=== PATIENT | female | born 1940 | race Caucasian/White ===

== ENCOUNTER 2016-11-03 13:12 | Outpatient (CLI) | payer OTHER | END 2016-11-03 13:13 | disposition home or self-care (01) | DX: G47.10 Hypersomnia, unspecified (principal); G47.8 Other sleep disorders; R06.83 Snoring ==

== ENCOUNTER 2016-12-11 08:42 | Outpatient (CLI) | payer MEDICARE | END 2016-12-11 08:43 | disposition home or self-care (01) | DX: E11.9 Type 2 diabetes mellitus without complications (principal) ==

== ENCOUNTER 2017-01-16 15:08 | Outpatient (CLI) | payer MEDICARE | END 2017-01-16 15:09 | disposition home or self-care (01) | DX: D64.9 Anemia, unspecified (principal) ==

== ENCOUNTER 2017-01-28 23:31 | Outpatient (CLI) | payer MEDICARE | END 2017-01-28 23:32 | disposition home or self-care (01) | DX: G47.33 Obstructive sleep apnea (adult) (pediatric) (principal); R09.02 Hypoxemia; I48.91 Unspecified atrial fibrillation; Z68.41 Body mass index [BMI] 40.0-44.9, adult ==

== ENCOUNTER 2017-02-03 08:29 | Outpatient (CLI) | payer MEDICARE ==
[2017-02-03] MEDS ORDERED: BARIUM SULFATE 135 ML BOTTLE PO ONE (09:17)
[2017-02-03] MEDS ORDERED: BARIUM SULFATE 176 GM BOTTLE PO ONE (09:17)
== END 2017-02-03 08:30 | disposition home or self-care (01) ==
DX: K21.9 Gastro-esophageal reflux disease without esophagitis (principal); K22.0 Achalasia of cardia
CPT/HCPCS: 74246; A9270

== ENCOUNTER 2017-02-16 09:43 | Outpatient (CLI) | payer MEDICARE, OTHER | END 2017-02-16 09:44 | disposition home or self-care (01) | DX: G47.33 Obstructive sleep apnea (adult) (pediatric) (principal); R09.02 Hypoxemia; I48.91 Unspecified atrial fibrillation | CPT/HCPCS: 99214; G0463 ==

== ENCOUNTER 2017-02-24 10:47 | Outpatient (CLI) | payer MEDICARE | END 2017-02-24 10:48 | disposition home or self-care (01) | DX: R09.02 Hypoxemia (principal); I48.2 Chronic atrial fibrillation; G47.33 Obstructive sleep apnea (adult) (pediatric); R09.89 Other specified symptoms and signs involving the circulatory and respiratory systems; J90 Pleural effusion, not elsewhere classified; J98.11 Atelectasis ==

== ENCOUNTER 2017-02-24 18:54 | Outpatient (CLI) | payer MEDICARE | END 2017-02-24 18:55 | disposition critical access hospital (66) | LOC: EMS 18:54 | PROVIDERS: ATTEND Surgery | DX: R06.02 Shortness of breath (principal) | CPT/HCPCS: A0425; A0427 ==

== ENCOUNTER 2017-02-24 19:27 | Inpatient (IN) | payer MEDICARE ==
[2017-02-24] MEDS ORDERED: NITROGLYCERIN 2% PASTE TOP STA (19:45)
[2017-02-24] MEDS ORDERED: FUROSEMIDE 40 MG/4 ML VIAL IVP STA (19:46)
[2017-02-24] MEDS ORDERED: FUROSEMIDE 40 MG/4 ML VIAL ONE (19:50)
[2017-02-24] MEDS ORDERED: NITROGLYCERIN 2% PASTE TOP ONE (19:51)
[2017-02-24] MEDS ORDERED: ACETAMINOPHEN 325 MG TABLET PO PRN (20:39)
[2017-02-24] MEDS ORDERED: SODIUM CHLORIDE FLUSH 0.9% 10 ML SYRINGE IVP PRN (20:39)
[2017-02-24] MEDS ORDERED: MORPHINE 2 MG/ML SYRINGE IVP PRN (20:39)
[2017-02-24] MEDS ORDERED: oxyCODONE 5 MG TABLET PO PRN (20:39)
[2017-02-24] MEDS ORDERED: PROCHLORPERAZINE 10 MG/2 ML VIAL IVP PRN (20:39)
[2017-02-24] MEDS ORDERED: ONDANSETRON 4 MG/2 ML VIAL IVP PRN (20:39)
[2017-02-24] MEDS ORDERED: FUROSEMIDE 40 MG/4 ML VIAL IVP SCH (21:00)
[2017-02-24] MEDS: ATENOLOL 25 MG TABLET PO SCH (22:37)
[2017-02-24] MEDS: DABIGATRAN 75 MG CAPSULE PO SCH (22:38)
[2017-02-24] MEDS: SODIUM CHLORIDE FLUSH 0.9% 10 ML SYRINGE IVP SCH (22:41)
[2017-02-25] MEDS: SODIUM CHLORIDE FLUSH 0.9% 10 ML SYRINGE IVP SCH ×3 (06:39→21:27)
[2017-02-25] MEDS: LEVOTHYROXINE 75 MCG TABLET PO SCH (06:39)
[2017-02-25] MEDS: PANTOPRAZOLE 40 MG TABLET PO SCH (06:39)
[2017-02-25] MEDS: INSULIN ASPART 300 UNIT/3 ML PEN SUBQ SCH ×4 (08:16→21:19)
[2017-02-25] MEDS: DABIGATRAN 75 MG CAPSULE PO SCH ×2 (08:27→21:26)
[2017-02-25] MEDS: ATENOLOL 25 MG TABLET PO SCH (08:29)
[2017-02-25] MEDS: POTASSIUM CHLORIDE 20 MEQ TABLET PO SCH (08:30)
[2017-02-25] MEDS: FUROSEMIDE 40 MG/4 ML VIAL IVP SCH ×2 (08:30→21:18)
[2017-02-25] MEDS ORDERED: LISINOPRIL 5 MG TABLET PO SCH (09:00)
[2017-02-25] MEDS ORDERED: NIFEdipine ER 30 MG TABLET PO SCH (09:00)
[2017-02-25] MEDS: POLYETHYLENE GLYCOL 3350 17 GM PACKET PO SCH (11:37)
[2017-02-25] MEDS ORDERED: BUFFERED LIDOCAINE 10 ML SYRINGE IU ONE (16:42)
[2017-02-26] MEDS: PANTOPRAZOLE 40 MG TABLET PO SCH (06:07)
[2017-02-26] MEDS: SODIUM CHLORIDE FLUSH 0.9% 10 ML SYRINGE IVP SCH ×2 (06:07→14:24)
[2017-02-26] MEDS: LEVOTHYROXINE 75 MCG TABLET PO SCH (06:07)
[2017-02-26] MEDS: INSULIN ASPART 300 UNIT/3 ML PEN SUBQ SCH ×3 (07:28→21:39)
[2017-02-26] MEDS: FUROSEMIDE 40 MG/4 ML VIAL IVP SCH ×2 (09:05→14:24)
[2017-02-26] MEDS: POTASSIUM CHLORIDE 20 MEQ TABLET PO SCH (09:07)
[2017-02-26] MEDS: POLYETHYLENE GLYCOL 3350 17 GM PACKET PO SCH (09:09)
[2017-02-26] MEDS: DABIGATRAN 75 MG CAPSULE PO SCH ×2 (09:10→21:58)
[2017-02-27] MEDS: SODIUM CHLORIDE FLUSH 0.9% 10 ML SYRINGE IVP SCH ×2 (06:10→06:11)
[2017-02-27] MEDS: LEVOTHYROXINE 75 MCG TABLET PO SCH (06:11)
[2017-02-27] MEDS: PANTOPRAZOLE 40 MG TABLET PO SCH (06:11)
[2017-02-27] MEDS: POTASSIUM CHLORIDE 20 MEQ TABLET PO SCH (08:37)
[2017-02-27] MEDS: INSULIN ASPART 300 UNIT/3 ML PEN SUBQ SCH ×4 (08:37→22:22)
[2017-02-27] MEDS: DABIGATRAN 75 MG CAPSULE PO SCH ×2 (08:37→22:23)
[2017-02-27] MEDS: POLYETHYLENE GLYCOL 3350 17 GM PACKET PO SCH (08:38)
[2017-02-27] MEDS: TORSEMIDE 20 MG TABLET PO SCH ×2 (09:28→13:43)
[2017-02-27] MEDS ORDERED: diphenhydrAMINE 25 MG CAPSULE PO PRN (16:25)
[2017-02-28] MEDS: TORSEMIDE 20 MG TABLET PO SCH ×2 (06:19→13:56)
[2017-02-28] MEDS: LEVOTHYROXINE 75 MCG TABLET PO SCH (06:20)
[2017-02-28] MEDS: PANTOPRAZOLE 40 MG TABLET PO SCH (06:20)
[2017-02-28] MEDS: INSULIN ASPART 300 UNIT/3 ML PEN SUBQ SCH ×2 (08:36→11:20)
[2017-02-28] MEDS: POLYETHYLENE GLYCOL 3350 17 GM PACKET PO SCH (08:43)
[2017-02-28] MEDS: DABIGATRAN 75 MG CAPSULE PO SCH (08:43)
[2017-02-28] MEDS: POTASSIUM CHLORIDE 20 MEQ TABLET PO SCH (08:44)
== END 2017-02-28 15:10 | disposition home or self-care (01) | DRG 299 ==
PROC: 0W9B3ZZ Drainage of Left Pleural Cavity, Percutaneous Approach (ICD-10-PCS; principal; 2017-02-25)
DX: I11.0 Hypertensive heart disease with heart failure (principal); I50.43 Acute on chronic combined systolic (congestive) and diastolic (congestive) heart failure; I48.91 Unspecified atrial fibrillation; E11.51 Type 2 diabetes mellitus with diabetic peripheral angiopathy without gangrene; I50.41 Acute combined systolic (congestive) and diastolic (congestive) heart failure; I13.0 Hypertensive heart and chronic kidney disease with heart failure and stage 1 through stage 4 chronic kidney disease, or unspecified chronic kidney disease; J91.8 Pleural effusion in other conditions classified elsewhere; Z68.42 Body mass index [BMI] 45.0-49.9, adult; I48.2 Chronic atrial fibrillation; E03.9 Hypothyroidism, unspecified; K21.9 Gastro-esophageal reflux disease without esophagitis; Z90.49 Acquired absence of other specified parts of digestive tract; K75.81 Nonalcoholic steatohepatitis (NASH); K74.60 Unspecified cirrhosis of liver; E11.22 Type 2 diabetes mellitus with diabetic chronic kidney disease; N18.9 Chronic kidney disease, unspecified; D64.9 Anemia, unspecified; E04.2 Nontoxic multinodular goiter; E66.9 Obesity, unspecified; G47.33 Obstructive sleep apnea (adult) (pediatric); Z87.891 Personal history of nicotine dependence; Z91.14 Patient's other noncompliance with medication regimen; Z79.84 Long term (current) use of oral hypoglycemic drugs; Z88.5 Allergy status to narcotic agent; Z99.81 Dependence on supplemental oxygen; Z82.49 Family history of ischemic heart disease and other diseases of the circulatory system

== ENCOUNTER 2017-03-09 21:20 | Outpatient (CLI) | payer MEDICARE | END 2017-03-09 21:21 | disposition EMS.NT | LOC: EMS 21:20 | PROVIDERS: ATTEND Surgery | DX: R41.82 Altered mental status, unspecified (principal); E16.2 Hypoglycemia, unspecified ==

== ENCOUNTER 2017-03-10 09:13 | Outpatient (CLI) | payer MEDICARE | END 2017-03-10 09:14 | disposition critical access hospital (66) | LOC: EMS 09:13 | PROVIDERS: ATTEND Surgery | DX: R41.82 Altered mental status, unspecified (principal); E16.2 Hypoglycemia, unspecified; R06.00 Dyspnea, unspecified; R53.83 Other fatigue | CPT/HCPCS: A0425; A0427 ==

== ENCOUNTER 2017-03-10 09:45 | Inpatient (IN) | payer MEDICARE ==
[2017-03-10] MEDS ORDERED: DEXTROSE 50% ABBOJECT 25 GM/50 ML SYRINGE IVP ONE ×2 (09:58→14:12)
[2017-03-10] MEDS ORDERED: DEXTROSE 50% ABBOJECT 25 GM/50 ML SYRINGE ONE ×5 (10:03→14:26)
--- NOTE | 2017-03-10 10:22 | ED Physician Documentation ---
History of Present Illness - Stated complaint Stated Complaint: LOW BLOOD SUGAR - Chief complaint Chief Complaint: General - History obtained from History obtained from: Patient, EMS - History of Present Illness Timing: Today - Additonal information Additional information: 76 y/o diabetic female not on insulin has developed low blood sugar and this has recurred. She has recently been put on Glipazide while in the hospital. She was attended to last night by medics for a low blood sugar and she was given dextrose and has symptoms again this morning. Review of Systems Constitutional: reports: Fatigue. denies: Fever, Chills Eyes: denies: Decreased vision Ears: denies: Ear pain Nose: denies: Congestion Throat: denies: Sore throat Cardiac: denies: Chest pain / pressure, Palpitations Respiratory: denies: Dyspnea, Cough GI: denies: Abdominal Pain, Nausea, Vomiting : denies: Dysuria, Frequency Skin: denies: Rash Musculoskeletal: denies: Neck pain, Back pain, Extremity pain Neurologic: reports: Altered mental status. denies: Generalized weakness, Focal weakness, Numbness PD PAST MEDICAL HISTORY - Past Medical History Cardiovascular: Congestive heart failure, Hypertension, Peripheral Vascular Disease, Atrial fibrillation Respiratory: Shortness of breath, Sleep apnea Endocrine/Autoimmune: Type 2 diabetes, HyPOthyroidism GI: GERD, Colon polyps : Incontinence HEENT: None Psych: None Musculoskeletal: Osteoarthritis Derm: None - Past Surgical History General: Cholecystectomy, Appendectomy, Gastric surgery, Colonoscopy, EGD /[employer]: section HEENT: Tonsil/Adenoidectomy - Present Medications Home Medications: Ambulatory Orders Medication Instructions Recorded Confirmed Dabigatran [Pradaxa] 150 mg PO BID 03/28/13 03/10/17 Levothyroxine Sodium [Levoxyl] 75 mcg PO QDAC 03/28/13 03/10/17 Omeprazole [PriLOSEC] 20 mg ORAL DAILY 04/26/14 03/10/17 Glipizide [Glipizide ER] 5 mg PO DAILY 02/25/17 03/10/17 Potassium Chloride [K-Dur] 20 meq PO BIDWM #60 tablet 02/28/17 03/10/17 Torsemide 40 mg PO BIDDIURETIC #60 tablet 02/28/17 03/10/17 Atenolol [Atenolol] 100 mg PO BID 03/10/17 03/10/17 - Allergies Allergies/Adverse Reactions: Allergies Allergy/AdvReac Type Severity Reaction Status Date / Time codeine [Codeine] Allergy Unknown Rash Verified 02/24/17 21:33 Adhesive tapes AdvReac Mild Rash Uncoded 02/24/17 21:33 - Social History Does the pt smoke?: Yes Smoking Status: Former smoker Does the pt drink ETOH?: Yes Does the pt have substance abuse?: No - Immunizations Immunizations are current?: Yes - POLST Patient has POLST: Yes POLST Status: Full Code PD ED PE NORMAL - Vitals Vital signs reviewed: Yes (tachy ) - General General: No acute distress, Well developed/nourished - HEENT HEENT: Atraumatic, PERRL, EOMI - Neck Neck: Supple, no meningeal sign - Cardiac Cardiac: No murmur, Other (irregularly irregular with tachy rate to 120) - Respiratory Respiratory: No respiratory distress, Clear bilaterally - Abdomen Abdomen: Soft, Non tender - Back Back: No CVA TTP, No spinal TTP - Derm Derm: Normal color, No rash - Extremities Extremities: No deformity, Other (pitting edema bilaterally ) - Neuro Neuro: No motor deficit, No sensory deficit, Normal speech - Psych Psych: Normal mood, Normal affect Results - Vitals Vitals: Vital Signs - 24 hr 03/10/17 03/10/17 03/10/17 09:53 10:15 11:14 Temperature 36.6 C Heart Rate 119 H 132 H 88 Respiratory 18 16 18 Rate Blood Pressure 129/70 129/74 124/81 H O2 Saturation 93 99 99 03/10/17 03/10/17 12:02 12:35 Temperature Heart Rate 96 108 H Respiratory 17 18 Rate Blood Pressure 119/67 110/66 O2 Saturation 100 100 Oxygen O2 Source Room air - Labs Labs: Laboratory Tests 03/10/17 03/10/17 03/10/17 11:00 11:25 11:47 WBC 8.5 RBC 3.92 L Hgb 9.1 L Hct 28.8 L MCV 73.5 L MCH 23.3 L MCHC 31.7 L RDW 24.0 H Plt Count 199 MPV 8.2 Neut # 7.4 H Lymph # 0.4 L [place] # 0.5 Eos # 0.2 Baso # 0.0 Absolute Nucleated RBC 0.01 Nucleated RBCs 0.1 Manual Slide Review Indicated WBC Morphology 1+ VACUOLATION Platelet Estimate NORMAL (130-450,000) Platelet Morphology NORMAL APPEARANCE RBC Morph Micro Appear 1+ TARGET CELLS Sodium 136 Potassium 4.5 Chloride 92 L Carbon Dioxide 36 H Anion Gap 8.0 BUN 30 H Creatinine 1.6 H Estimated GFR (MDRD) 31 L Glucose 77 Calcium 9.2 Total Bilirubin 0.9 AST 23 ALT 19 Alkaline Phosphatase 87 Troponin I Total Protein 7.5 Albumin 2.9 L Globulin 4.6 H Albumin/Globulin Ratio 0.6 L Lipase 46 Urine Color YELLOW Urine Clarity CLEAR Urine pH 7.5 Ur Specific [place] 1.015 Urine Protein NEGATIVE Urine Glucose (UA) NEGATIVE Urine Ketones NEGATIVE Urine Occult Blood NEGATIVE Urine Nitrite NEGATIVE Urine Bilirubin NEGATIVE Urine Urobilinogen 0.2 (NORMAL) Ur Leukocyte Esterase NEGATIVE Ur Microscopic Review NOT INDICATED Urine Culture Comments NOT INDICATED 03/10/17 11:47 WBC RBC Hgb Hct MCV MCH MCHC RDW Plt Count MPV Neut # Lymph # [place] # Eos # Baso # Absolute Nucleated RBC Nucleated RBCs Manual Slide Review WBC Morphology Platelet Estimate Platelet Morphology RBC Morph Micro Appear Sodium Potassium Chloride Carbon Dioxide Anion Gap BUN Creatinine Estimated GFR (MDRD) Glucose Calcium Total Bilirubin AST ALT Alkaline Phosphatase Troponin I < 0.04 Total Protein Albumin Globulin Albumin/Globulin Ratio Lipase Urine Color Urine Clarity Urine pH Ur Specific [place] Urine Protein Urine Glucose (UA) Urine Ketones Urine Occult Blood Urine Nitrite Urine Bilirubin Urine Urobilinogen Ur Leukocyte Esterase Ur Microscopic Review Urine Culture Comments Procedures - IVC sono (time) 0945 Bedside IVC sono: IVC measures (cm) (1.95), Euvolemia PD MEDICAL DECISION MAKING - ED course Complexity details: reviewed old records, reviewed results, re-evaluated patient , considered differential, d/w patient ED course: 76 y/o female with a history of CHF and diabetes has recently started on Glipizide and she has had recurrent hypoglycemia starting last night and this morning she was low and given dextrose in the field, she was low again when she arrived here and she was given a second amp of D50 and again bottomed out in the 40's and required a 3rd amp of D50. Her volume status and her oxygenation today appear compensated. She arrived with a heart rate of 130 with afib and she was given iV dilt 10mg with improvement in her rate to 100. Departure - Departure Disposition: ED Place in Observation Clinical Impression: Hypoglycemia secondary to sulfonylurea Qualifiers: Encounter type: initial encounter Injury intent: accidental or unintentional Qualified Code(s): T38.3X1A - Poisoning by insulin and oral hypoglycemic [ antidiabetic] drugs, accidental (unintentional), initial encounter
[2017-03-10] MEDS ORDERED: diltiaZEM INJ 5 MG/ML VIAL IVP STA (10:30)
[2017-03-10] MEDS ORDERED: diltiaZEM INJ 5 MG/ML VIAL ONE (10:43)
[2017-03-10 11:20] LABS: BASOPHILS % (AUTO) 0.2 %; EOSINOPHILS # (AUTO) 0.2 10^3/uL (0.0-0.7); EOSINOPHILS % (AUTO) 1.9 %; HCT - HEMATOCRIT 28.8 % (37.0-47.0); HGB - HEMOGLOBIN 9.1 g/dL (12.0-16.0); LYMPHOCYTES # (AUTO) 0.4 10^3/uL (1.5-3.5); LYMPHOCYTES % (AUTO) 5.3 %; MEAN CORPUSCULAR HEMOGLOBIN 23.3 pg (27.0-31.0); MEAN CORPUSCULAR HGB CONC 31.7 g/dL (32.0-36.0); MEAN CORPUSCULAR VOLUME 73.5 fL (81.0-99.0); MEAN PLATELET VOLUME 8.2 fL (7.9-10.8); MONOCYTES # (AUTO) 0.5 10^3/uL (0.0-1.0); MONOCYTES % (AUTO) 5.4 %; NEUTROPHILS # (AUTO) 7.4 10^3/uL (1.5-6.6); NEUTROPHILS % (AUTO) 87.2 %; NUCLEATED RED BLOOD CELLS AUTO 0.1 /100WBC; RED BLOOD COUNT 3.92 10^6/uL (4.20-5.40); UNCORRECTED WHITE BLOOD COUNT 8.5 x10^3/uL; WHITE BLOOD COUNT 8.5 x10^3/uL (4.8-10.8)
[2017-03-10] MEDS ORDERED: DEXTROSE 50% ABBOJECT 25 GM/50 ML SYRINGE IVP STA (11:21)
[2017-03-10 11:38] LABS: BILIRUBIN,URINE NEGATIVE (NEGATIVE); PH,URINE 7.5 PH (5.0-7.5)
[2017-03-10 11:39] LABS: UA CHARGE (STRIP ONLY) YES; UR CULTURE IF IND NOT INDICATED
[2017-03-10 11:55] LABS: PLATELET ESTIMATE, MANUAL NORMAL (130-450,000) (NORMAL); PLATELET MORPHOLOGY NORMAL APPEARANCE (NORMAL); WBC MORPHOLOGY (MULTIPLE) 1+ VACUOLATION (NORMAL)
[2017-03-10 12:12] LABS: ALBUMIN/GLOBULIN RATIO 0.6 (1.0-2.2); BILIRUBIN,TOTAL 0.9 mg/dL (0.2-1.0); CALCIUM 9.2 mg/dL (8.5-10.3); CREATININE 1.6 mg/dL (0.4-1.0); POTASSIUM 4.5 mmol/L (3.5-5.0); TOTAL PROTEIN 7.5 g/dL (6.7-8.2)
[2017-03-10] MEDS ORDERED: ONDANSETRON 4 MG/2 ML VIAL IVP PRN (13:53)
[2017-03-10] MEDS ORDERED: SODIUM CHLORIDE FLUSH 0.9% 10 ML SYRINGE IVP PRN (13:53)
[2017-03-10] MEDS ORDERED: DEXTROSE 5%-0.9% NACL 1,000 ML IV SCH (14:00)
[2017-03-10] MEDS: SODIUM CHLORIDE FLUSH 0.9% 10 ML SYRINGE IVP SCH ×2 (15:06→20:11)
--- NOTE | 2017-03-10 17:08 | HISTORY & PHYSICAL EXAMINATION ---
DATE OF ADMISSION: 03/10/2017 PRIMARY CARE PROVIDER: SUE Martinez. CHIEF COMPLAINT: Low blood sugar and confusion. IDENTIFYING INFORMATION: The patient is a poor historian given her intermittent hypoglycemia and othe r chronic comorbidities. The patient's son, Lewis, is present and provides essential supportive inform ation. This history is also supplemented by personal review of past medical records as well as the ogden ndoff from the emergency department physician. All were used in the evaluation of this person in brody tion to the physical exam and the preparation of this document. HISTORY OF PRESENT ILLNESS: The patient last evening was noted to have a low blood sugar, ambulance w as called and gave her ampules D50, she stayed at home. The patient had the same thing happen this mo rning. The patient has been out of the hospital for admission for exacerbation of CHF, atrial fibrill ation with RVR, admission was on 02/25/2017 to 03/01/2017. The patient had her medication changed fro m metformin to glipizide. The patient had the symptoms in this morning and was [facility] and required several more ampules of D50 with a recurrent severe hypoglycemia in the 20s and 30s. REVIEW OF SYSTEMS: The patient's review of systems is poor, but she does report she has been more wea k and more tired. The patient denies any fever, chills, sweats. No cough, no sore throat. The patient has not had any fast heart rate, chest pain or breathing problems this time. The rest of the complet e review of systems is negative as queried with the exceptions noted in the HPI. PAST MEDICAL HISTORY: Remarkable for congestive heart failure, hypertension, peripheral vascular dise ase, atrial fibrillation. The patient does have sleep apnea, uses CPAP machine. The patient has type 2 diabetes and hypothyroidism. The patient also has colon polyps which have been resected, and GERD. She does have urinary incontinence. The patient also has arthritis. PAST SURGICAL HISTORY: 1. Cholecystectomy. 2. Appendectomy. 3. Gastric surgery. 4. Colonoscopy. 5. Esophagogastroduodenoscopy. 6. section. 7. Tonsillectomy and adenoidectomy. PERSONAL AND SOCIAL HISTORY: The patient lives in [place], [place] with her daughter. The patient is a retired RN. The patient drinks several beers a day. The patient quit smoking 30 years ago, only smoked half pack a day for 10 years. FAMILY HISTORY: Mother had coronary artery disease. Sister alive and well. Brother of old age, a nd she has a father who from a ruptured appendix at a young age. ALLERGIES: 1. CODEINE. 2. ADHESIVE TAPE. MEDICATIONS: 1. Pradaxa 150 mg b.i.d.. 2. Levoxyl 75 mcg daily except for Thursday and Thursday. 3. Omeprazole 20 mg a day. 4. Glipizide ER 5 mg a day. 5. Potassium chloride 20 meq b.i.d. 6. Torsemide 40 mg twice a day. PHYSICAL EXAMINATION: GENERAL: Elderly female, appears to be somewhat slow in response. This may be because of her intermit tent hypoglycemia. VITAL SIGNS: Temperature 36.4, pulse 95, respirations 18, blood pressure 113/64, pulse oximeter 99 on room air. The patient appears in no acute distress at this time. EYES: EOMs within normal limits, PERRL, nonicteric. ENT: TMs not seen. MOUTH AND THROAT: Somewhat dry mucous membranes, no other pathology noted of the mouth or pharynx. NECK: Short neck. Nontender. No lymphadenopathy, no JVD appreciated. CHEST WALL: Nontender. Symmetric. There is no breast exam done. HEART: Shows irregular rhythm in the 90s and no murmur appreciated. LUNGS: Clear, good air movement. ABDOMEN: Very thick abdominal wall, soft, nontender. RECTAL/GENITAL: Exam not done. EXTREMITIES: She has 2 to 3+ edema of the upper calves. This is chronic. No pulses appreciated. VASCULAR: No cyanosis. NEURO: Cognition intact. Cranial nerves intact. Motor intact. LABORATORY DATA: The patient's urine is clear, specific gravity 1.015, no signs of infection. White c ount, 8.5, 9.1 and 28.8 hemoglobin and hematocrit, of note MCV is 73.5. The patient's platelets 199. The sodium 136, potassium 4.5, chloride 92, CO2 36, BUN 30, creatinine 1.6, and the glucose is 77, T is 23, ALT is 19. The patient's troponin less than 0.04. Albumin is 2.9. SUMMARY: This is a 76-year-old female who lives in a home with her daughter and has a past medical hi story significant for diabetes, obstructive sleep apnea, chronic atrial fibrillation, anticoagulated with Pradaxa, hypertension, GERD, hypothyroidism and a low blood sugar starting last night requiring EMS to give her glucose. The patient called EMS again today and was again with low sugars and brought in the hospital and evaluated and repeated ampules of D50 were unsuccessful in sustaining her blood sugar. DIAGNOSES: 1. Recalcitrant severe hypoglycemia. 2. Chronic kidney disease. 3. Atrial fibrillation rate controlled with anticoagulation. 4. Diabetes. 5. Obstructive sleep apnea. DISCUSSION/DECISION MAKIN. Severe hypoglycemia. The patient will be given intermittent ampules of D50 and IV infusion of D5 w ith frequent blood sugar checks. The expectation is that the glipizide given her chronic kidney disea se has prolonged the excretion of this medication and will be over a day given extended release and p otentially up to 3 days to be metabolized and excreted allowing her to resume her usual eating habits and monitoring of her sugar. 2. Chronic kidney disease. She has borderline stage III/IV chronic kidney disease and will need to be monitored. 3. Atrial fibrillation is rate controlled. We will continue her present medications to control that, as well as her anticoagulation with Pradaxa. 4. Diabetes, obviously this is too well controlled at the present time and will need to be monitored closely. 5. Obstructive sleep apnea. She will be wearing her own CPAP machine. HOSPITAL ISSUES: 1. CODE STATUS: SHE IS FULL CODE. 2. Venous thromboembolism prophylaxis: She is already on Pradaxa. 3. Diet will be a carb controlled diet. 4. Activities: When her sugars are normalizing she will be allowed to get up with assistance. 5. Tubes and lines: She will have a peripheral IV only at the present time. She does have urinary inc ontinence which may need attention. 6. Hospital stay: The patient is inpatient given the severity of hypoglycemia and the expectations, w ill need to spend 2 nights to determine if she is improved enough to be able to have a safe discharge home. 7. Expected length of stay: Two nights. 8. Disposition which is expected to be back home with her daughter. JOB #: [id number] EXT JOB #:[id number]
[2017-03-10] MEDS: TORSEMIDE 20 MG TABLET PO SCH (17:24)
[2017-03-10] MEDS: diltiaZEM CD 120 MG CAPSULE PO SCH (17:24)
[2017-03-10] MEDS: LEVOTHYROXINE 75 MCG TABLET PO SCH (17:24)
[2017-03-10] MEDS: DEXTROSE 10% 1,000 ML IV SCH (17:42)
[2017-03-10] MEDS: DABIGATRAN 75 MG CAPSULE PO SCH (20:11)
[2017-03-11] MEDS: SODIUM CHLORIDE FLUSH 0.9% 10 ML SYRINGE IVP SCH ×3 (05:12→20:25)
[2017-03-11] MEDS: TORSEMIDE 20 MG TABLET PO SCH ×2 (06:46→13:20)
[2017-03-11] MEDS: LEVOTHYROXINE 75 MCG TABLET PO SCH (06:47)
[2017-03-11] MEDS: PANTOPRAZOLE 40 MG TABLET PO SCH (06:47)
[2017-03-11] MEDS: DABIGATRAN 75 MG CAPSULE PO SCH ×2 (08:29→20:25)
[2017-03-11] MEDS: diltiaZEM CD 120 MG CAPSULE PO SCH (08:31)
[2017-03-11] MEDS: POLYETHYLENE GLYCOL 3350 17 GM PACKET PO SCH (08:32)
[2017-03-11] MEDS: DEXTROSE 10% 1,000 ML IV SCH (13:16)
[2017-03-11] MEDS ORDERED: GLUCAGON 1 MG/ML VIAL SUBQ PRN (16:55)
[2017-03-11] MEDS ORDERED: DEXTROSE 50% ABBOJECT 25 GM/50 ML SYRINGE IVP PRN (16:55)
[2017-03-11] MEDS ORDERED: DEXTROSE GEL 37.5 GM TUBE PO PRN (16:55)
[2017-03-11] MEDS ORDERED: DEXTROSE 5% 1,000 ML IV PRN (16:55)
--- NOTE | 2017-03-11 17:15 | PROVIDER PROGRESS NOTE ---
Assessment/Plan - Problem List (1) Hypoglycemia secondary to sulfonylurea Qualifiers: Encounter type: initial encounter Injury intent: accidental or unintentional Qualified Code(s): T38.3X1A - Poisoning by insulin and oral hypoglycemic [antidiabetic] drugs, accidental (unintentional), initial encounter Assessment/Plan: She has finally had BG above 100 twice with D10 drip. She has had the D10 stopped Will continue to check BG every 2 hrs. (2) Atrial fibrillation Qualifiers: Atrial fibrillation type: chronic Qualified Code(s): I48.2 - Chronic atrial fibrillation Assessment/Plan: Rate controlled and no issue - Current Meds Current Meds: Current Medications Generic Name Dose Route Start Last Admin Trade Name Freq PRN Reason Stop Dose Admin Dabigatran 150 mg 03/10/17 21:00 03/11/17 08:29 Pradaxa PO 150 mg BID EDEN Administration Diltiazem HCl 120 mg 03/10/17 14:30 03/11/17 08:31 Cardizem Cd PO 120 mg DAILY EDEN Administration Levothyroxine Sodium 75 mcg 03/10/17 15:00 03/11/17 06:47 Synthroid PO 75 mcg QDAC EDEN Administration Pantoprazole Sodium 40 mg 03/11/17 07:00 03/11/17 06:47 Protonix PO 40 mg QDAC EDEN Administration Polyethylene Glycol 17 gm 03/11/17 09:00 03/11/17 08:32 Miralax PO Not Given DAILY EDEN Sodium Chloride 10 ml 03/10/17 14:00 03/11/17 15:21 Normal Saline Flush 0.9% IVP Not Given Q8HR EDEN Torsemide 40 mg 03/10/17 15:00 03/11/17 13:20 Torsemide PO 40 mg BIDDIURETIC EDEN Administration - Lab Result Fish Bone Diagrams: 03/10/17 11:00 03/10/17 11:47 - Additional Planning My Orders: My Active Orders 03/10/17 20:05 RT [Home CPAP/BiPAP] [RC] .ONCE 03/11/17 16:55 Blood Glucose POC [RC] Q2HR Dextrose 5% [D5w] 1,000 ml IV 100 mls/hr Dextrose 50% Abboject [Dextrose] 20 - 50 ml IVP ONCE PRN Dextrose [Glutose] 37.5 - 75 gm PO ONCE PRN Glucagon [Glucagen] 1 mg SUBQ ONCE PRN Subjective - Subjective Patient Reports: Feeling Better, Resting Comfortably Nursing Reports: No Complaints Objective Vital Signs: Vital Signs - 24 hr 03/10/17 03/11/17 03/11/17 20:45 00:24 07:44 Temperature 36.5 C 36.6 C 36.8 C Heart Rate [ 113 H 97 98 Brachial] Respiratory 18 18 20 Rate Blood Pressure 129/80 116/67 118/70 [Right Brachial artery] O2 Saturation 99 95 96 03/11/17 17:05 Temperature 36.3 C L Heart Rate [ 97 Brachial] Respiratory 18 Rate Blood Pressure 125/67 [Right Brachial artery] O2 Saturation 96 Oxygen O2 Source Nasal cannula I&O (Last 24 Hrs): Intake and Output Totals x24h 03/09/17 03/10/17 03/11/17 23:59 23:59 23:59 Intake Total 545 1888 Output Total 1 Balance 545 1887 General: Alert, Oriented x3, No acute distress HEENT: PERRLA, EOMI Neck: No JVD, No thyromegaly Neuro: Alert Respiratory: Chest non-tender, No respiratory distress, Breath sounds nml Abdomen: Normal bowel sounds, Soft, No tenderness - Results Results: Laboratory Results WBC 8.5 x10^3/uL (4.8-10.8) 03/10/17 11:00 RBC 3.92 10^6/uL (4.20-5.40) L 03/10/17 11:00 Hgb 9.1 g/dL (12.0-16.0) L 03/10/17 11:00 Hct 28.8 % (37.0-47.0) L 03/10/17 11:00 MCV 73.5 fL (81.0-99.0) L 03/10/17 11:00 MCH 23.3 pg (27.0-31.0) L 03/10/17 11:00 MCHC 31.7 g/dL (32.0-36.0) L 03/10/17 11:00 RDW 24.0 % (12.0-15.0) H 03/10/17 11:00 Plt Count 199 10^3/uL (130-450) 03/10/17 11:00 MPV 8.2 fL (7.9-10.8) 03/10/17 11:00 Neut # 7.4 10^3/uL (1.5-6.6) H 03/10/17 11:00 Lymph # 0.4 10^3/uL (1.5-3.5) L 03/10/17 11:00 [place] # 0.5 10^3/uL (0.0-1.0) 03/10/17 11:00 Eos # 0.2 10^3/uL (0.0-0.7) 03/10/17 11:00 Baso # 0.0 10^3/uL (0.0-0.1) 03/10/17 11:00 Absolute Nucleated RBC 0.01 x10^3/uL 03/10/17 11:00 Nucleated RBCs 0.1 /100WBC 03/10/17 11:00 Manual Slide Review Indicated 03/10/17 11:00 WBC Morphology 1+ VACUOLATION (NORMAL) 03/10/17 11:00 Platelet Estimate NORMAL (130-450,000) (NORMAL) 03/10/17 11:00 Platelet Morphology NORMAL APPEARANCE (NORMAL) 03/10/17 11:00 RBC Morph Micro Appear 2+ ANISOCYTOSIS (NORMAL) 2+ HYPOCHROMASIA (NORMAL) 1 + [place] BODY (NORMAL) 1+ TARGET CELLS (NORMAL) 03/10/17 11:00 RBC Morph Micro Appear 2+ ANISOCYTOSIS (NORMAL) 2+ HYPOCHROMASIA (NORMAL) 1 + [place] BODY (NORMAL) 1+ TARGET CELLS (NORMAL) 03/10/17 11:00 RBC Morph Micro Appear 2+ ANISOCYTOSIS (NORMAL) 2+ HYPOCHROMASIA (NORMAL) 1 + [place] BODY (NORMAL) 1+ TARGET CELLS (NORMAL) 03/10/17 11:00 RBC Morph Micro Appear 2+ ANISOCYTOSIS (NORMAL) 2+ HYPOCHROMASIA (NORMAL) 1 + [place] BODY (NORMAL) 1+ TARGET CELLS (NORMAL) 03/10/17 11:00 Sodium 136 mmol/L (135-145) 03/10/17 11:47 Potassium 4.5 mmol/L (3.5-5.0) 03/10/17 11:47 Chloride 92 mmol/L (101-111) L 03/10/17 11:47 Carbon Dioxide 36 mmol/L (21-32) H 03/10/17 11:47 Anion Gap 8.0 (6-13) 03/10/17 11:47 BUN 30 mg/dL (6-20) H 03/10/17 11:47 Creatinine 1.6 mg/dL (0.4-1.0) H 03/10/17 11:47 Estimated GFR (MDRD) 31 (>89) L 03/10/17 11:47 Glucose 77 mg/dL (70-100) 03/10/17 11:47 Calcium 9.2 mg/dL (8.5-10.3) 03/10/17 11:47 Total Bilirubin 0.9 mg/dL (0.2-1.0) 03/10/17 11:47 AST 23 IU/L (10-42) 03/10/17 11:47 ALT 19 IU/L (10-60) 03/10/17 11:47 Alkaline Phosphatase 87 IU/L (42-121) 03/10/17 11:47 Troponin I < 0.04 ng/mL (<0.49) 03/10/17 11:47 Total Protein 7.5 g/dL (6.7-8.2) 03/10/17 11:47 Albumin 2.9 g/dL (3.2-5.5) L 03/10/17 11:47 Globulin 4.6 g/dL (2.1-4.2) H 03/10/17 11:47 Albumin/Globulin Ratio 0.6 (1.0-2.2) L 03/10/17 11:47 Lipase 46 U/L (22-51) 03/10/17 11:47 Urine Color YELLOW 03/10/17 11:25 Urine Clarity CLEAR (CLEAR) 03/10/17 11:25 Urine pH 7.5 PH (5.0-7.5) 03/10/17 11:25 Ur Specific [place] 1.015 (1.002-1.030) 03/10/17 11:25 Urine Protein NEGATIVE mg/dL (NEGATIVE) 03/10/17 11:25 Urine Glucose (UA) NEGATIVE mg/dL (NEGATIVE) 03/10/17 11:25 Urine Ketones NEGATIVE mg/dL (NEGATIVE) 03/10/17 11:25 Urine Occult Blood NEGATIVE (NEGATIVE) 03/10/17 11:25 Urine Nitrite NEGATIVE (NEGATIVE) 03/10/17 11:25 Urine Bilirubin NEGATIVE (NEGATIVE) 03/10/17 11:25 Urine Urobilinogen 0.2 (NORMAL) E.U./dL (NORMAL) 03/10/17 11:25 Ur Leukocyte Esterase NEGATIVE (NEGATIVE) 03/10/17 11:25 Ur Microscopic Review NOT INDICATED 03/10/17 11:25 Urine Culture Comments NOT INDICATED 03/10/17 11:25 - Procedures Procedures: Procedures DRAINAGE OF LEFT PLEURAL CAVITY, PERCUTANEOUS APPROACH (02/24/17) ENDOSC POLYPECTOMY OF LG INTEST (03/29/13) ESOPHAGOGASTRODUODENOSCOPY [EGD] W/CLOSED BIOPSY (04/27/14)
[2017-03-11] MEDS ORDERED: DEXTROSE 10% 1,000 ML IV SCH (21:00)
[2017-03-12] MEDS: TORSEMIDE 20 MG TABLET PO SCH ×2 (06:06→14:40)
[2017-03-12] MEDS: PANTOPRAZOLE 40 MG TABLET PO SCH (06:07)
[2017-03-12] MEDS: LEVOTHYROXINE 75 MCG TABLET PO SCH (06:07)
[2017-03-12 08:35] VITALS: BP 139/78
[2017-03-12] MEDS: DABIGATRAN 75 MG CAPSULE PO SCH (09:15)
[2017-03-12] MEDS: diltiaZEM CD 120 MG CAPSULE PO SCH (09:15)
[2017-03-12] MEDS: POLYETHYLENE GLYCOL 3350 17 GM PACKET PO SCH (09:15)
--- NOTE | 2017-03-12 13:51 | Discharge Plan ---
Discharge Plan Disposition: 01 Home, Self Care Condition: Fair Diet: Diabetic Activity Restrictions: Activity as Tolerated Shower Restrictions: No Driving Restrictions: No Weight Bearing: Full Weight Additional Instructions or Follow Up instructions: Dru Young, Check your sugar 4 times a day for the next week Record the results for your provider Isela Ross Also make an appt to see her in the next week. DO NOT take the glipizide anymore. No Smoking: If you smoke, Please STOP! Call for help. Follow-up with: Arely Ross ARNP [Primary Care Provider] - 1 Week
[2017-03-12] MEDS: SODIUM CHLORIDE FLUSH 0.9% 10 ML SYRINGE IVP SCH ×2 (14:40→14:46)
--- NOTE | 2017-03-12 16:32 | DISCHARGE SUMMARY ---
DATE OF ADMISSION: 03/10/2017 DATE OF DISCHARGE: 03/12/2017 PRIMARY CARE PHYSICIAN: SUE Martinez. ADMISSION DIAGNOSES: 1. Recalcitrant severe hypoglycemia. 2. Chronic kidney disease. 3. Atrial fibrillation, rate controlled with anticoagulation. 4. Diabetes. 5. Obstructive sleep apnea on CPAP. DISCHARGE DIAGNOSES: 1. Recalcitrant severe hypoglycemia secondary to glipizide with chronic kidney disease, now resolved. 2. ARF on chronic kidney disease now improved. 3. Atrial fibrillation rate controlled with anticoagulation. 4. Diabetes controlled with a previous A1c of 6.6. 5. Obstructive sleep apnea on CPAP at home. 6. Chronic respiratory failure, on 2 liters oxygen at home. SPECIAL PROCEDURES: None. CONSULTATIONS: None. HOSPITAL COURSE AND MANAGEMENT: The initial presentation, hospital emergency evaluation, and hospitalist plan are well described in the history and physical , see copy of same. SUMMARY: This is a 76-year-old female who lives at home with her daughter and has past medical history significant for diabetes, obstructive sleep apnea, chronic atrial fibrillation with anticoagulation using Pradaxa, hypertension and GERD. The patient also has hypothyroidism and had low blood sugars starting last night requiring EMS to give her dextrose 50. The patient called EMS again this morning and again had low blood sugars, brought into the hospital, evaluated, and given repeated ampules of D50 which were unsuccessful in consistently improving her blood sugar. The patient was given several more amps of D50 and had rise in blood sugars which would drop into the 30s, so she needed a D10 drip of glucose into the next night to be able to reduce the D10, the 10 had to be restarted again due to a borderline low blood sugar. The patient the following morning was taken off the D10 and her blood sugar, which started 84 in the morning, went up to over 200 twice in the afternoon. The patient was able be discharged home. PHYSICAL EXAMINATION: VITAL SIGNS: On the day of discharge, 36.4, 94, 139/78, 19, 100% O2 on 2 liters. EYES: EOM within normal limits, PERRL, nonicteric. MOUTH AND THROAT: Moist mucous membranes. No other pathology noted. NECK: Nontender. No lymphadenopathy, no thyromegaly, JVD. CHEST: Nontender. Symmetric. HEART: Irregular rhythm, 2/6 murmur left sternal border. LUNGS: Clear. No breast exam done. ABDOMEN: Very thick abdominal wall, soft, nontender. RECTAL/: No rectal or genital exam done. EXTREMITIES: Has 1-2+ edema in the lower extremities, which is chronic. NEUROLOGICAL: Cognitive intact. Cranial nerves intact. The patient is discharged home. ALLERGIES: SHE IS ALLERGIC TO 1. CODEINE. 2. ADHESIVES. MEDICATIONS: 1. Losartan 25 mg a day. 2. Pradaxa 150 mg b.i.d. 3. Atenolol 100 mg b.i.d. 4. Levoxyl 75 mcg a day. 5. Furosemide 40 mg twice a day. 6. Potassium chloride 20 mEq twice a day. 7. Prilosec 20 mg a day. She is to stop the Prilosec. She will probably need to go on metformin, but will wait a week to see how her sugar fares at home and will make an appointment to see Arely Ross, her PCP, to decide how to manage her glucose at home subsequently. In the interim she is to check her glucose 4 times a day and record the numbers so that her PCP will have data to make adjustments. The patient was examined on the day of discharge as noted above. Time spent in discharge activity with case management, family, and nursing was 35 minutes. JOB #: [id number] EXT JOB #:[id number] ZULAY
== END 2017-03-12 15:10 | disposition home or self-care (01) | DRG 638 ==
LOC: ED 09:45 → MS 13:53 → OBSVTOIN 15:57 → MS 19:08
PROVIDERS: ADMIT Internal Medicine; ATTEND Internal Medicine
DX: E11.649 Type 2 diabetes mellitus with hypoglycemia without coma (principal); I13.0 Hypertensive heart and chronic kidney disease with heart failure and stage 1 through stage 4 chronic kidney disease, or unspecified chronic kidney disease; J96.10 Chronic respiratory failure, unspecified whether with hypoxia or hypercapnia; T38.3X5A Adverse effect of insulin and oral hypoglycemic [antidiabetic] drugs, initial encounter; N17.9 Acute kidney failure, unspecified; N18.4 Chronic kidney disease, stage 4 (severe); I48.2 Chronic atrial fibrillation; G47.33 Obstructive sleep apnea (adult) (pediatric); I50.9 Heart failure, unspecified; K21.9 Gastro-esophageal reflux disease without esophagitis; E03.9 Hypothyroidism, unspecified; I73.9 Peripheral vascular disease, unspecified; Y92.009 Unspecified place in unspecified non-institutional (private) residence as the place of occurrence of the external cause; Z99.81 Dependence on supplemental oxygen; Z79.84 Long term (current) use of oral hypoglycemic drugs; Z79.02 Long term (current) use of antithrombotics/antiplatelets; Z87.891 Personal history of nicotine dependence
CPT/HCPCS: 36415; 80053; 81001; 81003; 83690; 84484; 85025; 87086; 96374; 96375; 96376; 99284; 99285

== ENCOUNTER 2017-04-29 08:00 | Outpatient (CLI) | payer MEDICARE ==
[2017-04-29 19:01] LABS: CALCIUM 9.4 mg/dL (8.5-10.3); CREATININE 1.6 mg/dL (0.4-1.0); POTASSIUM 5.9 mmol/L (3.5-5.0)
== END 2017-04-29 08:01 | disposition home or self-care (01) ==
LOC: LAB.F 08:00
PROVIDERS: ATTEND Nurse Practitioner Family
DX: I50.9 Heart failure, unspecified (principal)
CPT/HCPCS: 80048; 83880

== ENCOUNTER 2017-05-07 08:00 | Outpatient (CLI) | payer MEDICARE ==
[2017-05-07 19:18] LABS: CALCIUM 9.8 mg/dL (8.5-10.3); CREATININE 1.7 mg/dL (0.4-1.0); POTASSIUM 4.1 mmol/L (3.5-5.0)
== END 2017-05-07 08:01 | disposition home or self-care (01) ==
LOC: LAB.F 08:00
PROVIDERS: ATTEND Nurse Practitioner Family
DX: I50.9 Heart failure, unspecified (principal)
CPT/HCPCS: 80048; 83880

== ENCOUNTER 2017-05-29 14:18 | Outpatient (CLI) | payer MEDICARE ==
[2017-05-29 18:39] LABS: CREATININE 1.8 mg/dL (0.4-1.0); POTASSIUM 4.5 mmol/L (3.5-5.0)
[2017-05-29 19:49] LABS: HEMOGLOBIN A1C 0.48 g/dL
== END 2017-05-29 14:19 | disposition home or self-care (01) ==
LOC: LAB.F 14:18
PROVIDERS: ATTEND Nurse Practitioner Family
DX: I50.9 Heart failure, unspecified (principal)
CPT/HCPCS: 36415; 80048; 83036; 83880

== ENCOUNTER 2017-08-28 02:47 | Outpatient (CLI) | payer MEDICARE | END 2017-08-28 02:48 | disposition EMS.NT | LOC: EMS 02:47 | PROVIDERS: ATTEND Surgery | DX: Z03.89 Encounter for observation for other suspected diseases and conditions ruled out (principal) ==

== ENCOUNTER 2017-08-30 23:11 | Outpatient (CLI) | payer MEDICARE | END 2017-08-30 23:12 | disposition EMS.NT | LOC: EMS 23:11 | PROVIDERS: ATTEND Surgery | DX: Z03.89 Encounter for observation for other suspected diseases and conditions ruled out (principal); W06.XXXA Fall from bed, initial encounter; Y92.003 Bedroom of unspecified non-institutional (private) residence as the place of occurrence of the external cause ==

== ENCOUNTER 2017-09-03 15:03 | Outpatient (CLI) | payer MEDICARE ==
[2017-09-03 18:16] LABS: CALCIUM 9.6 mg/dL (8.5-10.3); CREATININE 2.5 mg/dL (0.4-1.0); POTASSIUM 4.7 mmol/L (3.5-5.0)
== END 2017-09-03 15:04 | disposition home or self-care (01) ==
LOC: LAB.F 15:03
PROVIDERS: ATTEND Family Medicine
DX: H61.22 Impacted cerumen, left ear (principal); I50.9 Heart failure, unspecified; E11.9 Type 2 diabetes mellitus without complications; I10 Essential (primary) hypertension; N18.3 Chronic kidney disease, stage 3 (moderate)
CPT/HCPCS: 36415; 80048

== ENCOUNTER 2017-09-24 08:13 | Outpatient (CLI) | payer MEDICARE | END 2017-09-24 08:14 | disposition critical access hospital (66) | LOC: EMS 08:13 | PROVIDERS: ATTEND Surgery | DX: S01.01XA Laceration without foreign body of scalp, initial encounter (principal); W01.10XA Fall on same level from slipping, tripping and stumbling with subsequent striking against unspecified object, initial encounter; Z91.81 History of falling | CPT/HCPCS: A0425; A0429 ==

== ENCOUNTER 2017-09-24 08:46 | Emergency (ER) | payer MEDICARE ==
[2017-09-24] MEDS ORDERED: TETANUS/DIPHTHERIA/PERTUSSIS 0.5 ML SYRINGE IM ONE ×2 (09:57→10:28)
--- NOTE | 2017-09-24 09:57 | ED Physician Documentation ---
PD HPI Fall - Stated complaint Stated Complaint: GLF - Chief complaint Chief Complaint: Trauma Hd/Nk - History obtained from History obtained from: Patient, EMS - History of Present Illness Mechanism of injury: Tripped Fall distance: Sitting position Where injury occurred: Home Injury(ies) location: Head Associated symptoms: No: LOC, AMS, Neck pain Contributing factors: Anticoagulated - Additional information Additional information: The patient is a 77-year-old female who arrives via ambulance after falling out of bed this morning while trying to get dressed. She states she tripped over her feet. She denies lightheadedness or chest discomfort. She hit her head and presents with scalp laceration. She denies loss of consciousness or headache. She does have history of atrial fibrillation for which she is anticoagulated. She denies any other injuries, and has been ambulatory since the incident occurred. Her last tetanus booster is unknown initially, but a call to her primary provider reveals that her last tetanus booster was in 2004. Her past medical history is significant for chronic kidney disease, atrial fibrillation, diabetes, and sleep apnea for which she uses CPAP. Review of Systems Constitutional: denies: Fever Eyes: denies: Decreased vision Ears: denies: Tinnitus/ringing Nose: denies: Congestion Throat: denies: Sore throat Cardiac: denies: Chest pain / pressure, Palpitations Respiratory: denies: Dyspnea, Cough GI: denies: Abdominal Pain, Nausea, Vomiting : reports: Incontinent (chronically). denies: Dysuria Skin: reports: Laceration (s) (scalp) Musculoskeletal: denies: Neck pain, Back pain, Extremity pain Neurologic: reports: Head injury. denies: Focal weakness, Numbness, Altered mental status, Headache, LOC PD PAST MEDICAL HISTORY - Past Medical History Cardiovascular: Congestive heart failure, Atrial fibrillation Respiratory: Shortness of breath, Sleep apnea Endocrine/Autoimmune: Type 2 diabetes, HyPOthyroidism GI: GERD, Colon polyps : Incontinence HEENT: None Psych: None Musculoskeletal: Osteoarthritis Derm: None - Past Surgical History General: Cholecystectomy, Appendectomy, Gastric surgery, Colonoscopy, EGD /[employer]: section HEENT: Tonsil/Adenoidectomy - Present Medications Home Medications: Ambulatory Orders Medication Instructions Recorded Confirmed Dabigatran [Pradaxa] 150 mg PO BID 03/28/13 09/24/17 Levothyroxine Sodium [Levoxyl] 75 mcg PO QDAC 03/28/13 09/24/17 Omeprazole [PriLOSEC] 20 mg ORAL DAILY 04/26/14 09/24/17 Potassium Chloride [K-Dur] 20 meq PO BIDWM #60 tablet 02/28/17 09/24/17 Torsemide 40 mg PO BIDDIURETIC #60 tablet 02/28/17 09/24/17 Atenolol 100 mg PO BID 03/10/17 09/24/17 Losartan Potassium 25 mg PO DAILY 03/10/17 09/24/17 - Allergies Allergies/Adverse Reactions: Allergies Allergy/AdvReac Type Severity Reaction Status Date / Time codeine [Codeine] Allergy Unknown Rash Verified 09/24/17 08:53 Adhesive tapes AdvReac Mild Rash Uncoded 09/24/17 08:53 - Social History Does the pt smoke?: Yes Smoking Status: Current every day smoker Does the pt drink ETOH?: Yes Does the pt have substance abuse?: No - Immunizations Immunizations are current?: Yes - POLST Patient has POLST: Yes POLST Status: Full Code PD ED PE NORMAL - Vitals Vital signs reviewed: Yes (normal) - General General: Alert and oriented X 3, Well developed/nourished - HEENT HEENT: PERRL, EOMI, Ears normal, Other (2 cm scalp lac frontal scalp.) - Neck Neck: No bony TTP, No adenopathy, No JVD - Cardiac Cardiac: RRR, No murmur - Respiratory Respiratory: No respiratory distress, Clear bilaterally - Abdomen Abdomen: Soft, Non tender - Back Back: No CVA TTP, No spinal TTP - Derm Derm: No rash - Extremities Extremities: No calf tenderness / cord, Other (1+ pedal edema.) - Neuro Neuro: Alert and oriented X 3, No motor deficit, No sensory deficit Eye Opening: Spontaneous Motor: Obeys Commands Verbal: Oriented GCS Score: 15 Results - Vitals Vitals: Oxygen O2 Source Room air - EKG (time done) 10:03 Rate: Rate (enter#) (62) Rhythm: Atrial fibrillation [place]: RAD Intervals: Prolonged QT Ischemia: Non specific changes (diffuse T-wave flattening.) Compare to prior EKG: Unchanged from prior EKG Computer interpretation: Agree with computer - Labs Labs: Laboratory Tests 09/24/17 09/24/17 09/24/17 08:50 08:55 08:55 WBC 3.8 L RBC 3.39 L Hgb 8.9 L Hct 27.9 L MCV 82.3 MCH 26.2 L MCHC 31.9 L RDW 20.3 H Plt Count 256 MPV 7.3 L Neut # 2.4 Lymph # 1.0 L [place] # 0.3 Eos # 0.0 Baso # 0.0 Absolute Nucleated RBC 0.01 Nucleated RBC % 0.2 PT 30.6 H INR 2.8 H Sodium 139 Potassium 5.0 Chloride 95 L Carbon Dioxide 30 Anion Gap 14.0 H BUN 60 H Creatinine 2.5 H Estimated GFR (MDRD) 19 L Glucose 82 POC Whole Bld Glucose Calcium 9.6 Urine Color Urine Clarity Urine pH Ur Specific [place] Urine Protein Urine Glucose (UA) Urine Ketones Urine Occult Blood Urine Nitrite Urine Bilirubin Urine Urobilinogen Ur Leukocyte Esterase Ur Microscopic Review Urine Culture Comments 09/24/17 09/24/17 11:40 11:47 WBC RBC Hgb Hct MCV MCH MCHC RDW Plt Count MPV Neut # Lymph # [place] # Eos # Baso # Absolute Nucleated RBC Nucleated RBC % PT INR Sodium Potassium Chloride Carbon Dioxide Anion Gap BUN Creatinine Estimated GFR (MDRD) Glucose POC Whole Bld Glucose 87 Calcium Urine Color YELLOW Urine Clarity CLEAR Urine pH 6.0 Ur Specific [place] 1.010 Urine Protein NEGATIVE Urine Glucose (UA) NEGATIVE Urine Ketones NEGATIVE Urine Occult Blood NEGATIVE Urine Nitrite NEGATIVE Urine Bilirubin NEGATIVE Urine Urobilinogen 0.2 (NORMAL) Ur Leukocyte Esterase NEGATIVE Ur Microscopic Review NOT INDICATED Urine Culture Comments NOT INDICATED - Rads (name of study) head CT Radiology: Prelim report reviewed, EMP read contemporaneously, See rad report ( 1. No acute intracranial abnormalities are identified. 2. Right arachnoid cyst without significant change. 3. 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 compared to 08/16/2009.) Procedures - Laceration (location) scalp Length in cm: 2 Wound type: Linear Neurovascular status: Sensory intact, Vascular intact Anesthesia: Lidocaine 1% with epi Wound Preparation: Hibiclens Skin layer closure: [place] (4) Other: Patient tolerated well, No complications, Tetanus booster given Complexity: Simple PD MEDICAL DECISION MAKING - ED course Complexity details: reviewed old records, reviewed results, re-evaluated patient , considered differential, d/w patient, d/w family ED course: The patient's presentation is significant for scalp laceration caused by falling out of bed and hitting her head. CT scan of her head reveals no acute intracranial abnormality. Electrocardiogram reveals no significant change since prior tracing, and there is no evidence of rhythm abnormality. CBC reveals significant anemia with a hemoglobin of 8.9. Review of her medical records reveals chronic anemia with a hemoglobin in the 9-10 range over a period of several years. She denies any recent change in the color of her stools , and I suspect her anemia is a result of her chronic renal disease. Treatment in the emergency department included administration of tetanus booster. The scalp laceration was thoroughly cleaned and repaired with corey. I discussed with her and her daughter the expected course of injury, symptomatic treatment and outpatient follow-up, timing for staple removal, as well as potentially worrisome signs or symptoms that should prompt reevaluation in the emergency department. Departure - Departure Disposition: 01 Home, Self Care Clinical Impression: Fall Qualifiers: Encounter type: initial encounter Qualified Code(s): W19.XXXA - Unspecified fall, initial encounter Scalp laceration Qualifiers: Encounter type: initial encounter Qualified Code(s): S01.01XA - Laceration without foreign body of scalp, initial encounter Anemia Qualifiers: Chronic kidney disease stage: unspecified stage Chronic renal disease Qualifiers: Chronic kidney disease stage: unspecified stage Qualified Code(s): N18.9 - Chronic kidney disease, unspecified Atrial fibrillation Qualifiers: Atrial fibrillation type: chronic Qualified Code(s): I48.2 - Chronic atrial fibrillation Condition: Stable Instructions: ED Anemia Type Not Specified, ED Laceration Scalp Stitch Or Stap Follow-Up: Arely Ross ARNP [Primary Care Provider] - Comments: Keep the wound clean. It is okay to wash and shower. Follow-up for removal of corey in about 10 days. Schedule follow-up appointment with your primary doctor regarding anemia. Return to the emergency department if you develop markedly increasing headache, any sign of infection, progressive lightheadedness or recurrent falling, or otherwise worsening symptoms. Discharge Date/Time: 09/24/17 14:28
[2017-09-24 10:18] LABS: INR 2.8 (0.8-1.2); PT - PROTHROMBIN TIME 30.6 secs (9.9-12.6)
[2017-09-24 10:19] LABS: CALCIUM 9.6 mg/dL (8.5-10.3); CREATININE 2.5 mg/dL (0.4-1.0)
[2017-09-24 10:21] LABS: BASOPHILS % (AUTO) 0.3 %; EOSINOPHILS % (AUTO) 0.9 %; HCT - HEMATOCRIT 27.9 % (37.0-47.0); HGB - HEMOGLOBIN 8.9 g/dL (12.0-16.0); LYMPHOCYTES % (AUTO) 26.6 %; MEAN CORPUSCULAR HEMOGLOBIN 26.2 pg (27.0-31.0); MEAN CORPUSCULAR HGB CONC 31.9 g/dL (32.0-36.0); MEAN CORPUSCULAR VOLUME 82.3 fL (81.0-99.0); MEAN PLATELET VOLUME 7.3 fL (7.9-10.8); MONOCYTES # (AUTO) 0.3 10^3/uL (0.0-1.0); MONOCYTES % (AUTO) 7.6 %; NEUTROPHILS # (AUTO) 2.4 10^3/uL (1.5-6.6); NEUTROPHILS % (AUTO) 64.6 %; NUCLEATED RED BLOOD CELLS AUTO 0.2 /100WBC; RED BLOOD COUNT 3.39 10^6/uL (4.20-5.40); RED CELL DISTRIBUTION WIDTH 20.3 % (12.0-15.0); UNCORRECTED WHITE BLOOD COUNT 3.8 x10^3/uL; WHITE BLOOD COUNT 3.8 x10^3/uL (4.8-10.8)
--- NOTE | 2017-09-24 10:59 | CT Preliminary Report ---
Exam: CT HEAD W/O IMPRESSION: 1. No acute intracranial abnormalities is identified. 2. Right arachnoid cyst without significant change. 3. 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 4. No acute fracture. [facility] SITE ID: [id number]
--- NOTE | 2017-09-24 11:02 | CT Report ---
EXAM: CT HEAD EXAM DATE: 09/24/2017 10:24 AM. CLINICAL HISTORY: Fall. Head injury out. On anticoagulation therapy. Right scalp laceration. COMPARISON: 08/16/2009. 07/21/2008. TECHNIQUE: Multiaxial CT images were obtained from the foramen magnum to the vertex. Reformats: Coron al. IV contrast: None. In accordance with CT protocol optimization, one or more of the following dose reduction techniques w ere utilized for this exam: automated exposure control, adjustment of mA and/or KV based on patient s ize, or use of iterative reconstructive technique. FINDINGS: Parenchyma: No evidence of an acute vascular insult or acute parenchymal hemorrhage. Arachnoid cyst a gain seen along the anterior right temporal and right frontal lobe. Interval development of low-atten uation along the right frontal and right occipital lobes likely due to remote infarcts. Overall degre e of mass effect is unchanged. Extraaxial Spaces: Unchanged. No subdural or epidural collections identified. Ventricles: No hydrocephalus. Sinuses and Orbits: Right sphenoid sinus disease. Remainder of the paranasal sinuses and mastoid air cells are clear. Bones: No evidence of fracture or calvarial defect. Other: Globes and orbits are unremarkable. Right superior parietal scalp laceration. Scalp edema. IMPRESSION: 1. No acute intracranial abnormalities is identified. 2. Right arachnoid cyst without significant change. 3. 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 4. No acute fracture. [facility] Referring Provider Line: [phone] SITE ID: [id number]
[2017-09-24 11:57] LABS: BILIRUBIN,URINE NEGATIVE (NEGATIVE)
[2017-09-24 11:58] LABS: UA CHARGE (STRIP ONLY) YES; UR CULTURE IF IND NOT INDICATED
[2017-09-24 14:07] VITALS: BP 124/73
== END 2017-09-24 14:28 | disposition home or self-care (01) ==
LOC: EDUNIT# → ED 08:46
DX: S01.01XA Laceration without foreign body of scalp, initial encounter (principal); W06.XXXA Fall from bed, initial encounter; Y92.013 Bedroom of single-family (private) house as the place of occurrence of the external cause; E11.22 Type 2 diabetes mellitus with diabetic chronic kidney disease; N18.9 Chronic kidney disease, unspecified; D63.1 Anemia in chronic kidney disease; I48.91 Unspecified atrial fibrillation; Z79.01 Long term (current) use of anticoagulants; G47.30 Sleep apnea, unspecified; I50.9 Heart failure, unspecified; E03.9 Hypothyroidism, unspecified; K21.9 Gastro-esophageal reflux disease without esophagitis; M19.90 Unspecified osteoarthritis, unspecified site; Z86.010 Personal history of colon polyps; Z98.84 Bariatric surgery status; F17.200 Nicotine dependence, unspecified, uncomplicated; Z23 Encounter for immunization
CPT/HCPCS: 12001; 36415; 70450; 80048; 81001; 81003; 85025; 85610; 87086; 90471; 93005; 99284

== ENCOUNTER 2017-09-30 19:17 | Outpatient (CLI) | payer MEDICARE | END 2017-09-30 19:18 | disposition critical access hospital (66) | LOC: EMS 19:17 | PROVIDERS: ATTEND Surgery | DX: R41.82 Altered mental status, unspecified (principal) | CPT/HCPCS: A0425; A0427 ==